=== PATIENT | female | born 1950 | race Caucasian/White ===

== ENCOUNTER → 2020-04-22 | Outpatient (REF) | payer MEDICARE ==
[2020-04-22 15:10] LABS: BASO % 0.3 % (0.0-1.0); EOS # 0.2 10^3/uL (0.0-0.5); EOS % 5.2 % (0.0-3.0); HEMATOCRIT 33.1 % (36.0-47.0); HEMOGLOBIN 10.4 g/dl (12.0-15.5); LYMPH # 0.8 10^3/uL (1.5-5.0); LYMPH % 27.1 % (24.0-44.0); MEAN CORPUSCULAR HEMOGLOBIN 29.8 pg (27.0-33.0); MEAN CORPUSCULAR HGB CONC 31.4 g/dl (32.0-36.5); MEAN CORPUSCULAR VOLUME 94.8 fl (80.0-96.0); MONO # 0.3 10^3/uL (0.0-0.8); MONO % 8.1 % (2.0-8.0); NEUTROPHILS # 1.8 10^3/uL (1.5-8.5); PLATELET COUNT, AUTOMATED 200 10^3/uL (150-450); RED BLOOD COUNT 3.49 10^6/uL (4.00-5.40); WHITE BLOOD COUNT 3.1 10^3/uL (4.0-10.0)
[2020-04-22 15:19] LABS: INR 1.15
[2020-04-22 15:35] LABS: ALBUMIN 2.6 GM/DL (3.2-5.2); ALT/SGPT 21 U/L (12-78); BILIRUBIN,TOTAL 0.2 MG/DL (0.2-1.0); BLOOD UREA NITROGEN 17 MG/DL (7-18); C REACTIVE PROTEIN QUANTITATIV 1.54 MG/DL (0.00-0.30); CALCIUM LEVEL 8.1 MG/DL (8.8-10.2); CARBON DIOXIDE LEVEL 24 MEQ/L (21-32); CHLORIDE LEVEL 109 MEQ/L (98-107); CREATININE FOR GFR 0.58 MG/DL (0.55-1.30); GLOMERULAR FILTRATION RATE > 60.0 (>39); GLUCOSE, FASTING 111 MG/DL (70-100); POTASSIUM SERUM 3.9 MEQ/L (3.5-5.1); SODIUM LEVEL 141 MEQ/L (136-145); TOTAL PROTEIN 5.5 GM/DL (6.4-8.2)
[2020-04-22 16:05] LABS: ERYTHROCYTE SEDIMENTATION RATE 54 mm/hr (0-30)
== END ==
LOC: M LAB REF 14:54
PROVIDERS: ATTEND Nurse Practitioner Family
DX: D64.9 Anemia, unspecified (principal); L02.416 Cutaneous abscess of left lower limb; R16.1 Splenomegaly, not elsewhere classified; K63.1 Perforation of intestine (nontraumatic); R79.82 Elevated C-reactive protein (CRP); Z94.4 Liver transplant status

== ENCOUNTER → 2020-04-30 | Outpatient (CLI) | payer MEDICARE ==
[~2020-04-30] MED LIST: ACET-897 PO; ADVI200T PO; ASPI81TA26 PO; CEFT1INJ5 IV; GABA600T4 PO; IRON65TA2 PO; METR-265 PO; REFR0.5D8 OU; THERTAB52 PO; TRAM50TA2 PO; TRAZ-252 PO; VALT1TAB PO; [UNRECOGNIZED DRUG - CODE] PO
--- NOTE | 2020-04-30 13:54 | REPVR ---
PROCEDURE INFORMATION: Exam: MR Lumbar Spine Without Contrast Exam date and time: 04/30/2020 10:53 AM Age: 69 years old Clinical indication: Pain; Lumbago; Additional info: Low back pain TECHNIQUE: Imaging protocol: Multiplanar magnetic resonance images of the lumbar spine without intravenous contrast. COMPARISON: No relevant prior studies available. FINDINGS: Vertebrae: There is a lumbar dextroscoliotic curvature. There is straightening of the normal lumbar lordosis. There is 3 mm of grade 1 retrolisthesis of L3 with respect to L4. Normal vertebral body alignment is otherwise preserved. Vertebral body heights are within normal limits. There is a suspected evolving Schmorl's node at L2. There is severe intervertebral disc space loss at L3/4, with extensive endplate edema and trace fluid within the intervertebral disc space. There is moderate to severe intervertebral disc space loss at L1/2, L2/3 and L4/5. Spinal cord: Normal signal. No cord compression. L1-L2: There is shallow disc bulging. There is moderate facet hypertrophy. There is mild left neural foraminal narrowing. L2-L3: There is a diffuse disc osteophyte complex. There is moderate facet hypertrophy. The spinal canal and neural foramina are patent. L3-L4: There is a diffuse disc osteophyte complex/uncovering related to listhesis. There is moderate facet hypertrophy. There is mild canal stenosis. There is moderate right and [id number] left neural foraminal narrowing. There is mild canal stenosis. L4-L5: There is diffuse disc bulging. There is moderate facet hypertrophy. Trace fluid is noted within the left facet joint. There is mild bilateral neural foraminal narrowing. L5-S1: There is a diffuse disc osteophyte complex. There is moderate facet hypertrophy. There is mild to moderate right and moderate to severe left neural foraminal narrowing. Soft tissues: Unremarkable. IMPRESSION: 1. Degenerative disc disease and spondylosis. At L5/S1, changes contribute to [id number] right and moderate to severe left neural foraminal narrowing. 2. Pronounced endplate signal changes at L3/4 with associated severe intervertebral disc space loss and trace fluid within the disc space. Findings may be degenerative in nature. Discitis/osteomyelitis could have a similar imaging appearance. If this is of concern, repeat imaging with gadolinium is recommended. Electronically signed by: Hyun Angulo On 04/30/2020 13:54:41 PM
== END ==
LOC: EDSEX → M RAD 09:56
PROVIDERS: ATTEND Orthopaedic Surgery
DX: M51.36 Other intervertebral disc degeneration, lumbar region (principal); M47.817 Spondylosis without myelopathy or radiculopathy, lumbosacral region; M54.5 Low back pain; Z86.19 Personal history of other infectious and parasitic diseases

== ENCOUNTER 2020-05-02 12:11 | Day surgery (SDC) | payer MEDICARE ==
[~2020-05-02] VITALS: Ht 175.3 cm; Wt 88.0 kg
[~2020-05-02 12:11] MED LIST changes: +NS 1,000 ML IV ONE
[2020-05-02] MEDS ORDERED: SODIUM CHLORIDE 0.9% INJ 10 ML SYR IV PRN (13:25)
[2020-05-02] MEDS ORDERED: propofoL 500 MG/50 ML VIAL As Ordered ONE (14:10)
[2020-05-02] MEDS ORDERED: LIDOCAINE 2% 100MG/5ML SDV (FOR ANES.) As Ordered ONE (14:10)
--- NOTE | 2020-05-02 14:28 | ROOR ---
Patient Name: Veto Wilder Procedure Date: 05/02/2020 1:50 PM Date of : 1950 Age: 69 Room: [facility] Gender: Male Note Status: Finalized Procedure: Total Colonoscopy to Cecum Indications: Abnormal CT of the GI tract, Diverticulitis, Follow-up of diverticulitis Providers: Judd Lyle MD Referring MD: Julieta RABAGO NP Requesting Provider: Medicines: Monitored Anesthesia Care Complications: No immediate complications. Procedure: Pre-Anesthesia Assessment: - The heart rate, respiratory rate, oxygen saturations, blood pressure, adequacy of pulmonary ventilation, and response to care were monitored throughout the procedure. The Colonoscope was introduced through the anus and advanced to the cecum, identified by appendiceal orifice and ileocecal valve. The colonoscopy was performed without difficulty. The patient tolerated the procedure well. The quality of the bowel preparation was good. Findings: The perianal and digital rectal examinations were normal. Non-bleeding internal hemorrhoids were found during retroflexion. The hemorrhoids were small and Grade I (internal hemorrhoids that do not prolapse). Multiple small and large-mouthed diverticula were found in the recto-sigmoid colon, sigmoid colon and descending colon. The exam was otherwise without abnormality on direct and retroflexion views. Impression: - Non-bleeding internal hemorrhoids. - Severe diverticulosis in the recto-sigmoid colon, in the sigmoid colon and in the descending colon. - The examination was otherwise normal on direct and retroflexion views. - No specimens collected. - The exam was otherwise normal to the cecum. Recommendation: - Patient has a contact number available for emergencies. The signs and symptoms of potential delayed complications were discussed with the patient. Return to normal activities tomorrow. Written discharge instructions were provided to the patient. - Resume previous diet. - Repeat colonoscopy is not recommended due to current age (66 years or older) for screening purposes. - Return to referring physician. - Refer to a colo-rectal surgeon at appointment to be scheduled. - The findings and recommendations were discussed with the patient's family. Procedure Code(s): --- Professional --- 81688, Colonoscopy, flexible; diagnostic, including collection of specimen(s) by brushing or washing, when performed (separate procedure) Diagnosis Code(s): --- Professional --- K64.0, First degree hemorrhoids K57.32, Diverticulitis of large intestine without perforation or abscess without bleeding K57.30, Diverticulosis of large intestine without perforation or abscess without bleeding R93.3, Abnormal findings on diagnostic imaging of other parts of digestive tract CPT copyright 2019 [employer]. All rights reserved. The codes documented in this report are preliminary and upon monitor technician review may be revised to meet current compliance requirements. Judd Lyle MD Judd Lyle MD 05/02/2020 2:27:51 PM Electronically signed by Judd Lyle MD Number of Addenda: 0 Note Initiated On: 05/02/2020 1:50 PM Estimated Blood Loss: Estimated blood loss: none.
[2020-05-02 14:54] VITALS: BP 95/52
[2020-05-02] MEDS ORDERED: SODIUM CHLORIDE 0.9% INJ 10 ML SYR IV SCH (18:00)
== END 2020-05-02 14:56 | disposition home or self-care (01) ==
LOC: M OPP 12:11
PROVIDERS: ATTEND Internal Medicine Gastroenterology
DX: R93.3 Abnormal findings on diagnostic imaging of other parts of digestive tract (principal); K57.32 Diverticulitis of large intestine without perforation or abscess without bleeding; K64.0 First degree hemorrhoids; K57.30 Diverticulosis of large intestine without perforation or abscess without bleeding; M19.90 Unspecified osteoarthritis, unspecified site; Z92.3 Personal history of irradiation; Z96.649 Presence of unspecified artificial hip joint; Z96.652 Presence of left artificial knee joint; Z88.8 Allergy status to other drugs, medicaments and biological substances; Z79.82 Long term (current) use of aspirin; Z79.899 Other long term (current) drug therapy
CPT/HCPCS: 45378; J1642